=== PATIENT | female | born 1990 | race Caucasian/White ===

== ENCOUNTER 2018-11-27 18:24 | Emergency (ER) | payer BC, OTHER ==
[~2018-11-27] VITALS: Ht 162.6 cm; Wt 95.3 kg
[2018-11-27 19:04] LABS: URINE BILIRUBIN NEGATIVE (Negative); URINE BLOOD 3+ (Negative); URINE CLARITY CLEAR; URINE COLOR YELLOW; URINE GLUCOSE-RANDOM* NEGATIVE (Negative); URINE KETONES NEGATIVE (Negative); URINE LEUKOCYTES NEGATIVE (Negative); URINE NITRITE NEGATIVE (Negative); URINE PROTEIN (DIPSTICK) NEGATIVE (Negative); URINE SPECIFIC GRAVITY 1.025 (1.005-1.035); URINE UROBILINOGEN 0.2 E.U./dl (0.2-1.0)
[2018-11-27 19:12] LABS: SQUAMOUS 4-10 Moderate /LPF (0-3); URINE WBC 0-5 Rare /HPF (0-5)
[2018-11-27 19:13] LABS: BACTERIA None Seen /HPF (None Seen); CRYSTALS None Seen /LPF (None Seen); HYALINE CASTS 0-3 Few /LPF (None Seen); MUCUS 4-6 Moderate strn/LPF (None Seen); URINE RBC >20 Many /HPF (0-2)
[2018-11-27 19:55] LABS: ABSOLUTE NEUTROPHILS 5.6 thou/uL (1.4-8.2); BASOPHILS 0.2 % (0.0-2.0); EOSINOPHILS 0.6 % (0.0-3.0); HEMATOCRIT 34.7 % (37.0-47.0); HEMOGLOBIN 11.5 gm/dL (12.0-15.0); LYMPHOCYTES 18.7 % (24.0-44.0); MCH 30.2 pg (26.0-34.0); MCHC 33.2 g/dL (28.0-37.0); MCV 90.8 fL (80.0-100.0); MONOCYTES 10.3 % (1.0-8.0); PLATELET COUNT 353 thou/uL (150-400); POLYS 70.2 % (36.0-66.0); RBC 3.82 mil/uL (4.20-5.00)
[2018-11-27 20:01] LABS: CALCIUM 8.4 mg/dL (8.5-10.1); CREATININE 0.8 mg/dL (0.6-1.0); POTASSIUM 3.4 mmol/L (3.5-5.1)
[2018-11-27 20:07] LABS: ALBUMIN 3.2 g/dL (3.4-5.0); TOTAL BILIRUBIN 0.1 mg/dL (<0.1-1.0); TOTAL PROTEIN 6.8 g/dL (6.4-8.2)
[2018-11-27] MEDS ORDERED: JENCYCLA0.35 MG PO (20:31)
[2018-11-27 21:41] VITALS: BP 124/96
== END 2018-11-27 21:41 | disposition home or self-care (01) ==
LOC: ER 18:24
PROVIDERS: Physician Assistant
DX: N20.0 Calculus of kidney (principal); R11.2 Nausea with vomiting, unspecified; Z98.890 Other specified postprocedural states